=== PATIENT | male | born 1965 | race Caucasian/White ===

== ENCOUNTER → 2016-10-05 09:14 | Outpatient (CLI) | payer OTHER | END | disposition home or self-care (01) | LOC: D.US 09:14 | DX: I87.2 Venous insufficiency (chronic) (peripheral) (principal); I10 Essential (primary) hypertension; J44.9 Chronic obstructive pulmonary disease, unspecified ==

== ENCOUNTER 2016-10-07 04:57 | Day surgery (SDC) | payer OTHER ==
[~2016-10-07] VITALS: Ht 177.8 cm; Wt 74.8 kg
--- NOTE | ~2016-10-07 | OP ---
PATIENT NAME: BHAVESH NORRIS MEDICAL RECORD: [id number] :61 LOCATION:D.OPS ADMISSION DATE: SURGEON: TIFFANI ENGLAND MD DATE OF OPERATION: 10/07/2016 PREOPERATIVE DIAGNOSES: 1. Pathologic greater saphenous vein reflux bilaterally with severe venous insufficiency of the bilateral lower extremities. 2. CEAP-6 venous insufficiency involving the bilateral lower extremities. POSTOPERATIVE DIAGNOSES: 1. Pathologic greater saphenous vein reflux bilaterally with severe venous insufficiency of the bilateral lower extremities. 2. CEAP-6 venous insufficiency involving the bilateral lower extremities. 3. Sclerotic small greater saphenous veins from the ankle to the knee. PROCEDURES: 1. Bilateral VNUS radiofrequency ablations of the greater saphenous veins. The amount treated on the right was 45 cm. The amount treated on the left was 36 cm. This was performed under ultrasonographic guidance. 2. Surgeon interpretation of ultrasonographic images. SURGEON: Tiffani England MD. SUPERVISOR SMALL APPLIANCE ASSEMBLY: None. ESTIMATED BLOOD LOSS: Minimal. ANESTHESIA: General. COMPLICATIONS: None. As I told the patient due to his severe venous insufficiency, it is going to take a while for his condition to improve and that likely we will need to attempt to correct the situation through the use of multiple procedures. It is very unlikely that one procedure itself will be successful in healing up all of the open eschars and ulcers that he has involving the lower extremities. OPERATIVE COURSE: No radiologist was present for this procedure. Static ultrasonographic images were obtained and are kept in the patient's chart. The surgeon interpretation of the ultrasonographic images is dictated within the body of this operative note. The patient was conveyed to the operating room electively on 10/07/2016. General anesthesia was induced by anesthesia staff. Both lower extremities were sterilely prepped and draped. Subcutaneous Lovenox was given. This is to help prevent a deep venous thrombosis. I interrogated the right lower extremity with hand-held ultrasound. I identified a compressible very thickened right greater saphenous vein. I attempted to access the greater saphenous vein under ultrasonographic guidance from the ankle to the knee and this was not successful. At the knee, however, with the ultrasound transducer in an axial orientation, I was able to percutaneously access the greater saphenous vein in an antegrade fashion. A dilator sheath was advanced. The dilator and wire were removed. Through the OPERATIVE REPORT [id number] BHAVESH NORRIS sheath, the radiofrequency catheter was advanced. The patient was then positioned in the Trendelenburg position. I withdrew the tip of the radiofrequency catheter, so that was 2 cm from the saphenofemoral junction, within the greater saphenous vein. Utilizing a tumescent crystalloid solution, I infiltrated the perivenular tissues under ultrasonographic guidance. I then activated the radiofrequency catheter twice with external compression over the area where the tip of the catheter was. With each 7 cm withdrawal, we activated the radiofrequency catheter again. Once the catheter was removed through the sheath, a dilute foamed sclerosant was then injected and the patient was positioned in the reverse Trendelenburg position and pressure was held over the common femoral vessels for 5 minutes. Endovascular hardware was removed. The entry site was closed with a single horizontal mattress 4-0 Vicryl Rapide suture. Attention was then turned to the left side. Here again, the patient had a very small sclerotic greater saphenous vein from the ankle to the knee. I attempted to access the greater saphenous vein under ultrasonographic guidance and this was not successful; however, I was able to access the right below the knee. This was performed with the ultrasound transducer in an axial orientation. A guidewire passed easily. A small skin tyson was accomplished. A vessel dilator sheath was advanced. The dilator and wire were removed. Through the sheath, radiofrequency catheter was advanced. The patient was positioned in the Trendelenburg position. I withdrew the radiofrequency catheter so that the tip of the radiofrequency catheter was within the greater saphenous vein about 2 cm from the saphenofemoral junction. Utilizing a tumescent crystalloid solution, I infiltrated the perivenular tissues under ultrasonographic guidance. I then activated the radiofrequency catheter twice with external compression. With each 7 cm withdrawal of the radiofrequency catheter, it was activated again. Once the radiofrequency catheter was removed the patient was positioned in the reverse Trendelenburg position. A dilute foamed sclerosant was then injected through the sheath. I held pressure over the common femoral vessels for 5 minutes. Endovascular hardware was removed. The puncture site was closed with a single horizontal mattress of 4-0 Vicryl Rapide sutures. Sterile dressings were applied. We are going to leave the sterile dressings in place until Wednesday. I will see the patient in my office on Wednesday and at that time, we will plan for dressing change. TRANSINT:[id number] Voice Confirmation ID: [id number] DOCUMENT ID: [id number] OPERATIVE REPORT [id number] BHAVESH NORRIS ROBERT MD CC: TIFFANI LOPES MD, RED PANG STIEVE, JEFFREY MD and HARMONY,[id number] DICTATION DATE: 10/07/161111 PR INTERN: 10/07/162021 [facility] 10/07/16 [place] [id number] [place] [id number]
--- NOTE | ~2016-10-07 | HP ---
PATIENT: BHAVESH NORRIS MEDICAL RECORD: [id number] ACCOUNT: [id number] LOCATION:[facility] : 61 ADMISSION DATE: 10/07/16 HISTORY AND PHYSICAL EXAMINATION CHIEF COMPLAINT: Venous stasis disease. HISTORY OF PRESENT ILLNESS: The patient has CEAP-6 stasis disease involving both lower extremities. He is here for a radiofrequency ablation of bilateral lower extremities. He has chronic venous stasis ulcers. It causes him difficulty with ambulating. The patient has been noncompliant with medical care. I told him that he has had the problem for more than 2 years and is going to take a considerable period of time to make his condition improved. I told him that it may be that we will need to perform some sclerotherapy of side branches in addition to radiofrequency ablation. The patient underwent arterial Dopplers with ABIs. He had normal ankle brachial indices. The patient has been hospitalized at [facility] for bilateral lower extremity cellulitis. He was also admitted at [facility] for wound care. A consult was placed for dermatology at [facility], but was not completed. The patient has pitting edema involving lower extremities, worse on the left. The patient underwent bilateral lower extremity ultrasound examination, which revealed no deep vein thrombosis. There was significant reflux in the greater saphenous vein on the right and to a lesser degree on the left, so the patient has bilateral lower extremity venous reflux. We will plan for bilateral VNUS radiofrequency ablation of the greater saphenous veins. ALLERGIES: No known drug allergies. HOME MEDICATIONS: Lisinopril, levothyroxine. SOCIAL HISTORY: Former smoker. PAST MEDICAL AND SURGICAL HISTORY: History of TB, history of COPD, hypertension; hypothyroidism, on replacement therapy; history of drug abuse in the past, history of left arm infection, osteoarthritis of the hands and knees. PHYSICAL EXAMINATION: GENERAL: The patient appears chronically ill. He does not appear acutely ill. VITAL SIGNS: Reviewed. HEAD: External ears appear normal. EYES: Extraocular movements are intact. NECK: Trachea is midline. CHEST: No intercostal retractions. PULMONARY: Nonlabored, no stridor. ABDOMEN: No peritonitis with movement. EXTREMITIES: As described above. LABORATORY DATA: I personally reviewed the ultrasonographic images. I have personally reviewed the ultrasonography report sheet. IMPRESSION: Bilateral VNUS radiofrequency ablation of the greater saphenous veins and possibly the lesser saphenous veins. PLAN: As described above with possible sclerotherapy. HISTORY AND PHYSICAL [id number] BHAVESH NORRIS TRANSINT:[id number] Voice Confirmation ID: [id number] DOCUMENT ID: [id number] TIFFANI ENGLAND MD CC: TIFFANI LOPES MD, RED PANG STIEVE, JEFFREY MD and FRANKIE,[id number] DICTATION DATE: 10/07/16814 ACTING INSTRUCTOR: 10/07/16 101[address] [place] [id number] [place] [id number]
[2016-10-07] MEDS ORDERED: NORMODYNE / TR100 MG PO (06:50)
[2016-10-07 07:02] VITALS: BP 144/105; Ht 177.8 cm; Wt 74.8 kg
--- NOTE | 2016-10-07 09:37 | NUR ---
LOVANOX 80MG SQ RIGHT SIDE GIVEN AT 0919.
--- NOTE | 2016-10-07 14:53 | NUR ---
1420--PT VOIDS WITHOUT DIFFICULTY, IV DC'D. ADELIA DELVALLE RN 1430--DISCHARGE INSTRUCTIONS GIVEN, PT VERBALIZES UNDERSTANDING.PTOFF UNIT VIA WC.
== END 2016-10-07 14:30 | disposition home or self-care (01) ==
LOC: D.OPS 04:57
DX: I87.8 Other specified disorders of veins (principal); I87.2 Venous insufficiency (chronic) (peripheral); Z01.812 Encounter for preprocedural laboratory examination; J44.9 Chronic obstructive pulmonary disease, unspecified; Z87.891 Personal history of nicotine dependence; Z86.11 Personal history of tuberculosis; I10 Essential (primary) hypertension; E03.9 Hypothyroidism, unspecified; M19.049 Primary osteoarthritis, unspecified hand; M17.0 Bilateral primary osteoarthritis of knee; Z87.898 Personal history of other specified conditions; Z79.899 Other long term (current) drug therapy

== ENCOUNTER → 2017-04-26 09:15 | Outpatient (CLI) | payer OTHER ==
[2016-10-07 07:02] VITALS: BMI 23.7
[~2017-04-26 09:15] MED LIST: NORMODYNE / TR100 MG PO
== END | disposition home or self-care (01) ==
LOC: D.US 09:15
DX: I87.2 Venous insufficiency (chronic) (peripheral) (principal)

== ENCOUNTER 2017-10-06 06:25 | Day surgery (SDC) | payer OTHER ==
[~2017-10-06] VITALS: Ht 177.8 cm; Wt 78.0 kg
--- NOTE | ~2017-10-06 | OP ---
PATIENT NAME: BHAVESH NORRIS MEDICAL RECORD: [id number] :61 LOCATION:D.OPS ADMISSION DATE: SURGEON: DOUGLAS ENGLAND MD DATE OF OPERATION: 10/06/2017 PREOPERATIVE DIAGNOSIS: Bilateral CEAP-6 venous insufficiency involving the lower extremities. POSTOPERATIVE DIAGNOSIS: Bilateral CEAP-6 venous insufficiency involving the lower extremities. PROCEDURE: Bilateral ultrasound-guided foam sclerotherapy of perforating veins. SURGEON: Douglas England MD CLIENT CONSULTANT: None. BLOOD LOSS: Minimal. ANESTHESIA: General. COMPLICATIONS: None. The risks, possible complications, and alternatives to the procedure were explained to the patient. He elects to proceed. I told the patient that there is no guarantee that this procedure would work. I told him that it is a low risk and potentially high-yield procedure; however, my goal is to make it so that his venous changes do not worsen, and if they actually improve, that would be an extra bonus. This is the type of procedure that can be repeated in the future if it is not completely successful. I told him that it will take a long time for his legs to get in shape and it is going to take a long time for them to heal up as well. OPERATIVE COURSE: The patient was conveyed the operating room electively on 10/06/2017. General anesthesia was induced by the anesthesia staff. Both lower extremities were sterilely prepped and draped. Utilizing the real-time ultrasound, I identified perforating veins of the bilateral lower extremities inferior to the knee. Utilizing a dilute foamed Sotradecol solution through a 27-gauge needle, I injected multiple perforating veins. There was no significant extravasation of the foam sclerosant. The patient was in the reverse Trendelenburg position during the procedure. Sterile dressings were applied. The patient was then extubated and conveyed to postanesthesia care unit where he was in stable condition. There is no need for the patient to follow up with me in the office as I can see him on rounds out at the long term. TRANSINT:[id number] Voice Confirmation ID: [id number] DOCUMENT ID: [id number] OPERATIVE REPORT [id number] BHAVESH NORRIS DOUGLAS ENGLAND MD at 1240 CC: [id number] DICTATION DATE: 10/06/17 1147 MERCHANDISE DELIVERER: 10/06/17 1223 [facility] 10/06/17 [facility] [address] [place] [address]
[2017-10-06] MEDS ORDERED: HYDROCODON-ACE1 EAC7 (08:39)
[2017-10-06] MEDS ORDERED: ATARAX 25 MG TA25 MG PO (08:39)
[2017-10-06 08:49] VITALS: BP 132/85; Ht 177.8 cm; Wt 78.0 kg
[2017-10-06 08:52] LABS: HEMATOCRIT 40.1 % (42.0-54.0); HEMOGLOBIN 13.5 g/dL (13.5-17.5); MCH 26.5 pg (26.0-34.0); MCHC 33.7 g/dL (31.0-37.0); MCV 78.8 fL (80.0-100.0); MEAN PLATELET VOLUME 9.8 fL (7.4-10.4); PLATELET COUNT 187 10x3/uL (130-400); RBC 5.09 10x6/uL (4.20-6.10); RDW 14.8 % (11.5-14.5); WBC 7.9 10x3/uL (4.8-10.8)
[2017-10-06 09:24] LABS: EOSINOPHILS 3 % (0-7); LYMPHOCYTES 34 % (15-50); MONOCYTES 9 % (2-11); NEUTROPHILS 54 % (40-80); PLATELET ESTIMATE NORMAL
[2017-10-06 09:25] LABS: ANISOCYTOSIS OCC
== END 2017-10-06 14:00 | disposition home or self-care (01) ==
LOC: D.OPS 06:25
PROVIDERS: Anesthesiology
DX: I87.2 Venous insufficiency (chronic) (peripheral) (principal)